=== PATIENT | male | born 1950 | race Caucasian/White ===

== ENCOUNTER 2018-05-30 08:09 | Emergency (ER) | payer OTHER ==
[~2018-05-30] VITALS: Ht 170.2 cm; Wt 68.0 kg
[~2018-05-30 08:09] MED LIST: NABUMETONE500 MG PO; NABUMETONE750 MG PO; PERCOCET 5/3251 TAB PO
== END 2018-05-30 09:31 | disposition home or self-care (01) ==
LOC: ER 08:09
DX: M54.5 Low back pain (principal)